=== PATIENT | male | born 1990 | race Caucasian/White ===

== ENCOUNTER 2021-09-04 21:41 | Emergency (ER) | payer OTHER ==
[~2021-09-04] VITALS: Ht 188 cm; Wt 72.6 kg
[2021-09-04 21:48] VITALS: BP 149/89
--- NOTE | 2021-09-04 21:50 | NUR ---
INGA OK TO BOOK WITH C/O HEROIN WITHDRAWAL. ON ASSESSMENT, PATIENT IS AAO X 4, BREATHING EVEN AND UNLABORED, STATES THE LAST TIME HE TOOK HEROIN IS LAST TUESDAY. PT SEEN BY .
--- NOTE | 2021-09-04 22:01 | NUR ---
PT. VERBALIZED UNDERSTANDING OF DISCHARGE INSTRUCTIONS. LEFT ESCORTED BY 2 [employer] OFFICERS, IN STABLE CONDITION, AMBULATORY WITH STEADY GAIT
== END 2021-09-04 22:04 ==
LOC: EDUNIT# 21:41 → ER 21:48
DX: F15.90 Other stimulant use, unspecified, uncomplicated (principal); F17.200 Nicotine dependence, unspecified, uncomplicated; Z88.0 Allergy status to penicillin; Z60.2 Problems related to living alone